=== PATIENT | female | born 1985 | race Caucasian/White ===

== ENCOUNTER 2017-06-11 00:29 | Emergency (ER) | payer MEDICAID, SELFPAY ==
[~2017-06-11] VITALS: Ht 172.7 cm; Wt 120.0 kg
[~2017-06-11 00:29] MED LIST: /ADVA50050; ABIL10TA; GLUC1000; PENI250T81; PRIL20CA; PROV90AE; REVIA; SING10TA31
[2017-06-11] MEDS ORDERED: AMBI12.52 PO (00:42)
[2017-06-11] MEDS ORDERED: ADDE30CA3 PO (00:42)
[2017-06-11] MEDS ORDERED: dexameTHASONE 20 MG/5 ML VIAL (J1100) IM ONE (02:45)
[2017-06-11] MEDS: IPRATROPIUM 0.5MG/ALBUTEROL 2.5MG INH SOL UD 3ML (DUONEB)(J7620) NEB SCH ×3 (02:55→03:05)
[2017-06-11] MEDS ORDERED: ALBU17IN INH (03:37)
[2017-06-11] MEDS ORDERED: PRED20TA PO (03:38)
[2017-06-11] MEDS ORDERED: ALBUTEROL 90 MCG/ACT 8GM HFA INHALER INH ONE (03:45)
[2017-06-11 03:46] VITALS: BP 130/60
== END 2017-06-11 03:55 | disposition home or self-care (01) ==
LOC: M ED 00:29
DX: J45.901 Unspecified asthma with (acute) exacerbation (principal); F14.120 Cocaine abuse with intoxication, uncomplicated; F17.210 Nicotine dependence, cigarettes, uncomplicated; R10.10 Upper abdominal pain, unspecified; Z88.6 Allergy status to analgesic agent; Z79.899 Other long term (current) drug therapy
CPT/HCPCS: 94640; 96372; 99282; J1100

== ENCOUNTER → 2017-12-12 | Outpatient (REF) | payer OTHER ==
[2017-12-12 11:16] LABS: INR 0.97
== END ==
LOC: M LAB REF 10:35
DX: K02.9 Dental caries, unspecified (principal)

== ENCOUNTER 2021-06-06 21:50 | Emergency (ER) | payer MEDICAID, OTHER ==
[~2021-06-06] VITALS: Ht 177.8 cm; Wt 123.6 kg
[~2021-06-06 21:50] MED LIST changes: -/ADVA50050; +ADDE30CA3 PO; +ADVA1AER2; +ALBU17IN INH; +AMBI12.52 PO; +PRED20TA PO
[2021-06-06 22:04] VITALS: BP 135/77
[2021-06-06] MEDS ORDERED: IPRATROPIUM 0.5MG/ALBUTEROL 2.5MG INH SOL UD 3ML (DUONEB) NEB PRN (22:10)
[2021-06-06] MEDS ORDERED: dexameTHASONE 20MG/5ML VIAL (J1100 PER 1MG) IV ONE (22:10)
[2021-06-06 22:31] LABS: VENOUS BASE EXCESS -0.8 (-2.0-2.0); VENOUS HCO3 25.3 MEQ/L (23.0-27.0); VENOUS STANDARD HCO3 23.2 MEQ/L; VENOUS TOTAL CO2 26.8 MEQ/L (24.0-28.0)
[2021-06-06 22:34] LABS: BASO % 0.6 % (0.0-1.0); EOS # 0.5 10^3/uL (0.0-0.5); EOS % 6.7 % (0.0-3.0); HEMOGLOBIN 10.5 g/dl (12.0-15.5); LYMPH # 1.6 10^3/uL (1.5-5.0); MEAN CORPUSCULAR HEMOGLOBIN 30.1 pg (27.0-33.0); MEAN CORPUSCULAR HGB CONC 30.9 g/dl (32.0-36.5); MEAN CORPUSCULAR VOLUME 97.4 fl (80.0-96.0); MONO # 0.8 10^3/uL (0.0-0.8); MONO % 11.9 % (2.0-8.0); NEUTROPHILS # 3.9 10^3/uL (1.5-8.5); NEUTROPHILS % 57.5 % (36.0-66.0); PLATELET COUNT, AUTOMATED 171 10^3/uL (150-450); RED BLOOD COUNT 3.49 10^6/uL (4.00-5.40); WHITE BLOOD COUNT 6.8 10^3/uL (4.0-10.0)
[2021-06-06 23:14] LABS: ALBUMIN 3.1 GM/DL (3.2-5.2); ALT/SGPT 40 U/L (12-78); BILIRUBIN,DIRECT 0.2 MG/DL (0.0-0.2); BILIRUBIN,TOTAL 0.5 MG/DL (0.2-1.0); BLOOD UREA NITROGEN 27 MG/DL (7-18); CALCIUM LEVEL 8.5 MG/DL (8.5-10.1); CARBON DIOXIDE LEVEL 31 MEQ/L (21-32); CHLORIDE LEVEL 105 MEQ/L (98-107); CK-MB VALUE MASS 1.7 NG/ML (<3.6); CPK CREATINE PHOSPHOKINASE 131 U/L (26-192); CREATININE FOR GFR 0.84 MG/DL (0.55-1.30); GLOMERULAR FILTRATION RATE > 60.0 (>60); GLUCOSE, FASTING 80 MG/DL (70-100); LIPASE 231 U/L (73-393); POTASSIUM SERUM 4.1 MEQ/L (3.5-5.1); SODIUM LEVEL 142 MEQ/L (136-145); TOTAL PROTEIN 6.9 GM/DL (6.4-8.2); TROPONIN I < 0.02 NG/ML (< 0.10)
[2021-06-06] MEDS ORDERED: PRED20TA PO (23:48)
[2021-06-06] MEDS ORDERED: PROAAER10 INH (23:48)
--- NOTE | 2021-06-07 00:36 | REPVR ---
PROCEDURE INFORMATION: Exam: XR Chest Exam date and time: 06/06/2021 11:54 PM Age: 35 years old Clinical indication: Cough and dyspnea; Additional info: Dyspnea/cough TECHNIQUE: Imaging protocol: XR of the chest. Views: 1 view. COMPARISON: No relevant prior studies available. FINDINGS: Lungs: Unremarkable. No consolidation. Pleural spaces: Unremarkable. No pleural effusion. No pneumothorax. Heart/Mediastinum: Unremarkable. No cardiomegaly. Bones/joints: Unremarkable. Soft tissues: There are moderately generous overlying soft tissues. IMPRESSION: Negative chest. No acute process is identified. Electronically signed by: Rafael Koch On 06/07/2021 00:36:15 AM
--- NOTE | 2021-06-07 20:32 | ECGEPIP ---
[facility] - ED Test Date: 2021-06-06 Pat Name: TERRIE BURDEN Department: Room: - Gender: Female [employer] Supply Worker: DAV : 1985 Requested By: CARMEN BURT Order Number: [id number] Reading MD: Toña Rao Measurements Intervals [place] Rate: 85 P: 48 WV: 146 QRS: 46 QRSD: 88 T: 49 QT: 402 QTc: 478 Interpretive Statements Normal sinus rhythm No prior Electronically Signed on 06-07-2021 20:32:06 EDT by Toña Rao
== END 2021-06-07 00:03 | disposition home or self-care (01) ==
LOC: M ED 21:50
DX: J45.901 Unspecified asthma with (acute) exacerbation (principal); K21.9 Gastro-esophageal reflux disease without esophagitis; Z98.84 Bariatric surgery status; F17.200 Nicotine dependence, unspecified, uncomplicated; Z79.51 Long term (current) use of inhaled steroids; Z79.52 Long term (current) use of systemic steroids; Z88.6 Allergy status to analgesic agent
CPT/HCPCS: 71045; 80048; 80076; 82550; 82553; 82803; 83605; 83690; 85025; 87798; 93005; 93041; 96374; 99284; J1100